=== PATIENT | female | born 1980 | race Caucasian/White ===

== ENCOUNTER 2016-10-09 23:35 | Emergency (ER) | payer OTHER ==
[~2016-10-09] VITALS: Ht 167.6 cm; Wt 639.6 kg
--- NOTE | 2016-10-10 00:56 | RADIOLOGY REPORT ---
EXAMINATION: XR SOFT TISSUE NECK CLINICAL INDICATION: Foreign body COMPARISON: None TECHNIQUE: 2 views of the soft tissue neck were obtained. FINDINGS: No radiopaque foreign body is seen. No prevertebral soft tissue swelling. Laryngeal cartilage calcifications are noted. The epiglottis appears unremarkable. No acute osseous findings. Lung apices are clear. IMPRESSION: No radiopaque foreign body identified.
--- NOTE | 2016-10-10 01:40 | ED THROAT/DENTAL COMPLAINT ---
History of Present Illness General Chief Complaint: General Adult Stated Complaint: ? FB STUCK IN THROAT SENT IN BY IN [place] Source: patient Exam Limitations: no limitations Vital Signs & Intake/Output Vital Signs & Intake/Output Vital Signs Date Time Temp Pulse Resp B/P B/P Pulse O2 O2 Flow FiO2 Mean Ox Delivery Rate 10/10 0259 96.9 80 18 132/76 98 Room Air 10/10 0145 96.8 76 18 136/73 99 Room Air Allergies Coded Allergies: Cephalosporins (Severe, UNKNOWN 10/10/16) Penicillins (Severe, UNKNOWN 10/10/16) Sulfa (Sulfonamide Antibiotics) (Severe, UNKNOWN 10/10/16) ampicillin (Severe, UNKNOWN 10/10/16) clindamycin (Severe, UNKNOWN 10/10/16) gluten (Severe, UNKNOWN 10/10/16) shellfish derived (Severe, HIVES 10/10/16) tetracycline (Severe, UNKNOWN 10/10/16) Triage Nurses Notes Reviewed? yes Onset: Abrupt Duration: hour(s): Timing: single episode today Injury Environment: home Severity: moderate Modifying Factors: Improves With: rest. Associated Symptoms: "I have pain when I swallowed... but I feel better now." Patient currently breastfeeds: No HPI: 36yo woman presents with painful swallowing x several hours, which has now resolved. She notes, "I took my pills... I've been taking the same pills for years now... I swallowed one and had a sudden episode of pain when I swallowed... like it was stuck." She notes that she now feels better. Past History Medical History Any Pertinent Medical History? see below for history Surgical History Surgical History: none Family History Hx Contributory? No Review of Systems Review of Systems Constitutional: Reports: no symptoms. EENTM: Reports: no symptoms. Respiratory: Reports: no symptoms. Cardiovascular: Reports: no symptoms. GI: Reports: no symptoms. Genitourinary: Reports: no symptoms. Musculoskeletal: Reports: no symptoms. Skin: Reports: no symptoms. Neurological/Psychological: Reports: no symptoms. Hematologic/Endocrine: Reports: no symptoms. Immunologic/Allergic: Reports: no symptoms. All Other Systems: Reviewed and Negative Physical Exam Physical Exam General Appearance: well developed/nourished Head: atraumatic, normal appearance Eyes: Bilateral: normal appearance. Ears: Bilateral: canal normal. Nose: normal inspection Mouth/Throat: normal mouth inspection, pharynx normal, excessive drooling, foreign body Neck: normal inspection, supple, full range of motion, trachea midline, limited range of motion Cardiovascular/Respiratory: normal breath sounds, normal peripheral pulses Gastrointestinal: soft nontender nondistended Back: normal inspection Neurologic/Psych: no motor/sensory deficits, awake, alert Skin: intact, normal color, warm/dry Core Measures ACS in differential dx? No Severe Sepsis Present: No Septic Shock Present: No Progress Differential Diagnosis: abrasion vs fb Plan of Care: Laboratory Tests 10/10/16 0002: Urine Test Cancelled Diagnostic Imaging: Viewed by Me: Radiology Read. Discussed w/RAD: Radiology Read. Comments: soft tissue neck... no fb, no fx.... full report below. Departure Departure Disposition: HOME OR SELF CARE Condition: Stable Clinical Impression Primary Impression: Dysphagia Referrals: UNKNOWN (PCP/Family) Departure Forms: Customer Survey General Discharge Information Comments her symptoms resolved in ED... discussed at length ... pt safe for discharge and will follow up with ENT if sypmtoms continue.
[2016-10-10 02:59] VITALS: BP 132/76
== END 2016-10-10 03:01 ==
LOC: ERH 23:35
DX: R13.10 Dysphagia, unspecified (principal)
CPT/HCPCS: 70360; 81025